=== PATIENT | female | born 1995 | race Caucasian/White ===

== ENCOUNTER → 2019-08-20 14:01 | Outpatient (BNVA) | payer OTHER, SELFPAY | PROVIDERS: Family Provider Family Medicine; PCP Family Medicine; Visit Provider Obstetrics & Gynecology | DX: Z01.89 Encounter for other specified special examinations (principal) | CPT/HCPCS: 84315 ==

== ENCOUNTER → 2019-09-12 10:06 | Outpatient (BNVA) | payer OTHER, SELFPAY | PROVIDERS: Family Provider Family Medicine; PCP Family Medicine; Visit Provider Obstetrics & Gynecology | DX: Z01.89 Encounter for other specified special examinations (principal) | CPT/HCPCS: 84315 ==

== ENCOUNTER → 2019-09-16 15:30 | Outpatient (BNVA) | payer OTHER, SELFPAY | PROVIDERS: Family Provider Family Medicine; PCP Family Medicine; Visit Provider Obstetrics & Gynecology | DX: Z01.89 Encounter for other specified special examinations (principal) | CPT/HCPCS: 84315 ==

== ENCOUNTER → 2019-09-23 16:08 | Outpatient (BNVA) | payer OTHER, SELFPAY | PROVIDERS: Family Provider Family Medicine; PCP Family Medicine; Visit Provider Obstetrics & Gynecology Female Pelvic Medicine and Reconstructive Surgery | DX: Z01.89 Encounter for other specified special examinations (principal) | CPT/HCPCS: 84315 ==

== ENCOUNTER 2019-09-24 00:41 | Outpatient (CLI) | payer OTHER, SELFPAY ==
[2019-09-24 00:41] VITALS: BMI 33.1
[2019-09-24 00:49] VITALS: BP 144/83; PULSE 76; RESP 16; TEMP 37.2
== END 2019-09-24 01:45 | disposition home or self-care (01) ==
LOC: OPOB 00:45 → OBGYN 01:27 → OPOB 14:35
PROVIDERS: Family Provider Family Medicine; PCP Family Medicine; Visit Provider Obstetrics & Gynecology Female Pelvic Medicine and Reconstructive Surgery
DX: O26.899 Other specified pregnancy related conditions, unspecified trimester (principal); Z3A.00 Weeks of gestation of pregnancy not specified; R10.9 Unspecified abdominal pain
CPT/HCPCS: 59025; 99211; J2795

== ENCOUNTER 2019-09-24 05:30 | Inpatient (IN) | payer OTHER, SELFPAY ==
[2019-09-24] VITALS (80 sets, daily range): BP systolic 0–145; BP diastolic 0–89; PULSE 52–122; RESP 16–25; TEMP 36.4–37.4; O2SAT 90–100; BMI 33.1
[2019-09-24] MEDS: lactated ringers 1,000 ML 999 ML IV ×2 (06:15→07:21)
[2019-09-24] MEDS: fentaNYL 50 mcg/mL INJ 2mL IV (06:28)
[2019-09-24 06:35] LABS: Basophils % 0.2 %; Eosinophils % 0.1 %; Hematocrit 37.2 % (37.0-47.0); Hemoglobin 12.3 g/dL (11.5-15.3); Mean Corpuscular HGB Conc 33.1 g/dL (30.0-36.0); Mean Corpuscular Hemoglobin 31.9 pg (28.0-34.0); Mean Corpuscular Volume 96.6 fL (81-99); Mean Platelet Volume 9.5 fL (7.4-10.4); Monocytes # 0.6 10^3/uL (0.2-0.9); Monocytes % 4.5 %; Neutrophils # 11.9 10^3/uL (1.8-7.7); Neutrophils % 87.5 %; Nucleated Red Blood Cells % 0 %; Platelet Count 219 10^3/cmm (130-400); Red Blood Count 3.85 10^6/uL (4.1-5.3); Red Cell Distribution Width 13.4 % (12.1-15.1); White Blood Count 13.6 10^3/uL (4.0-10.0)
--- NOTE | 2019-09-24 07:49 | PM.OBGYHP ---
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 Presents to labor and delivery with regular uterine contractions onset last p.m. While under observation in labor and delivery patient had spontaneous rupture of membranes at that time fluid is clear her cervix was 4 cm her contractions were quite uncomfortable she was therefore admitted to labor and delivery. Uterine contractions approximately every 4 minutes described as quite strong by the patient. Reassuring category 1 tracing This has been uncomplicated. Present Details : 1 Para: 0 Date of Last Menstrual Period: 12/24/18 Calculated Date of Delivery: 09/30/19 Gestational Age Based on Last Menstrual Period: 39 Dating criteria OB: LMP confirmed by 1st trimester US care: good care Ultrasounds: normal 1st trimester US and normal mid trimester US Obstetrical complications: none Medical complications OB: none Review of Systems Const: Denies: fever, chills or body aches Eyes: Denies: change in vision ENMT: Denies: painful swallowing Card: Denies: chest pain, palpitations, irregular heart rhythm or edema Resp: Denies: shortness of breath, productive cough or non-productive cough GI: Reports: abdominal pain (Regular uterine contractions); Denies: nausea or vomiting : Denies: flank pain, difficulty urinating or vaginal discharge Musc: Denies: back pain, extremity pain or joint pain Skin/Breast: Denies: rash Neuro: Denies: headache or numbness in extremities Psych: Denies: anxiety or depression Endo: Denies: cold intolerance, excessive sweating, hot flashes or heat intolerance Agustin/Lymph: Denies: easy bruising or easy bleeding All/Imm: Denies: hives Medications/Allergies Allergies Allergy/AdvReac Type Severity Reaction Status Date / Time No Known Allergies Allergy Verified 09/11/19 12:48 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 History History 1 Term 0 Miscarriages/Ectopic 0 0 Living Children 0 Care 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 Calculator Estimated Delivery Date Method Current WG Current Estimate 09/30/19 LMP (Certain) 39w 1d Expected Delivery Route/Plan Anticipate vaginal delivery Specific Issues/Plans Patient desires labor epidural OB Visit Log Initial Weight: Not Recorded Date <del>?</del> EGA Weight BP Albumin <del>?</del> Glucose Nitrate <del>?</del> Blood Fundal Ht PRES HR Movement Edema Dilation Effacement Station 09/24/19 <del>?</del> 39w 1d 90.265 kg 199 g 139/72 124/74 124/89 131/69 114/75 111/60 117/58 141/74 145/71 124/58 143/72 134/75 141/82 137/77 144/72 <del>?</del> <del>?</del> Vertex -2 Vitals/I&O/Wt Last Vital Signs Temp 98.5 F 09/24/19 03:02 Pulse 97 09/24/19 07:45 Resp 25 H 09/24/19 06:28 BP 145/71 09/24/19 07:45 Pulse Ox 99 09/24/19 07:47 09/23/19 09/24/19 09/24/19 22:59 06:59 14:59 Intake Total 1000 / 1000 Balance 1000 / 1000 Weight last 48 hrs Weight 199 g Weight 90.265 kg Physical Exam Narrative: EXAM NARRATIVE: Alert and oriented no acute distress pleasant white female intermittent uterine contractions. Skin no rashes HEENT grossly normal Neck supple nontender no nodes no masses Lungs clear to auscultation Heart regular sinus rhythm Abdomen gravid soft nontender palpable uterine contractions baby is vertex by Teodoro estimated weight 7 pounds 12 ounces Pelvic examination: Per nursing service cervix 80% effaced/4 cm dilated/vertex SROM clear By my office exam pelvis is adequate Extremities grossly intact no edema Neurologic exam patella DTR 2/4 no clonus Data : 09/24/19 05:45 A&P Assessment and plan (1) Term : Status: Acute Code(s): Z34.90 - Encounter for supervision of normal , unspecified, unspecified trimester (2) Uterine contractions: Status: Acute (3) Spontaneous rupture of membranes: Status: Acute Attestations Medical Necessity Statement*: labor Time Spent in Patient Care: 16 - 35 minutes 30 Coding Level of Care Code Acute Real Estate Closer for Chg Fwd History Expanded Problem Focused Exam Expanded Problem Focused Medical Decision Making Moderate Complexity Diagnoses Term Z34.90 Uterine contractions Spontaneous rupture of membranes Time Spent (min) 30
--- NOTE | 2019-09-24 10:49 | PM.DELIVERY ---
 Delivery Note: Date of delivery: September 24, 2019 Pre-Delivery Course: unremarkable Delivery: Patient presented to labor and delivery early this a.m. with uterine contractions and underwent spontaneous rupture of membranes while ambulating at about 4 cm. Progress nicely to the first stage of labor with reassuring category 1 tracing underwent epidural anesthesia. She was allowed to progress to complete complete and started pushing with excellent maternal effort and reassuring tracing in second stage had spontaneous vaginal delivery occiput anterior viable female infant Apgars 8 and 9. Infant was laid on mom's abdomen delayed cord clamping was performed. Mother did did receive IV Pitocin with delivery of the anterior shoulder with excellent uterine contractility. Upon delivery of the placenta there was some reluctance of the placenta to to separate from uterine wall and manual extraction was performed without difficulty. Placenta appeared to be whole. Bilateral labial lacerations repaired with running 3-0 Vicryl without difficulty. Baby remained in room with parents for boarding. There were no complications. Post-Delivery Status: doing well to floor discharge in AM A&P Assessment and plan (1) Term : Status: Acute Code(s): Z34.90 - Encounter for supervision of normal , unspecified, unspecified trimester (2) Uterine contractions: Status: Acute (3) Spontaneous rupture of membranes: Status: Acute Coding Level of Care Code Acute Investigator Internal Affairs for Chg Fwd History Expanded Problem Focused Exam Expanded Problem Focused Medical Decision Making Moderate Complexity Diagnoses Term Z34.90 Uterine contractions Spontaneous rupture of membranes Time Spent (min) 35
[2019-09-24] MEDS: lanolin oint 7 gm 1 APPLIC TOPICAL (12:22)
[2019-09-24] MEDS: benzocaine-menthol 78 gm Canister 1 SPRAY TOPICAL (12:22)
[2019-09-24] MEDS: lidocaine 2% INJ 20 mL INJECTION (12:23)
--- NOTE | 2019-09-24 12:49 | PC.NURSE ---
transported via walking to pushing crib with baby inside. pt tolerated well
[2019-09-24] MEDS: acetaminophen 325 mg Tablet 650 MG PO (13:23)
[2019-09-24 22:41] LABS: Hematocrit 32.7 % (37.0-47.0); Hemoglobin 10.8 g/dL (11.5-15.3); Mean Corpuscular Hemoglobin 32.4 pg (28.0-34.0); Mean Corpuscular Volume 98.2 fL (81-99); Mean Platelet Volume 9.2 fL (7.4-10.4); Platelet Count 153 10^3/cmm (130-400); Red Blood Count 3.33 10^6/uL (4.1-5.3); Red Cell Distribution Width 13.5 % (12.1-15.1); White Blood Count 11.5 10^3/uL (4.0-10.0)
[2019-09-25 06:13] VITALS: BP 124/72; PULSE 70; RESP 16; TEMP 36.7
[2019-09-25 08:22] VITALS: BP 97/58; PULSE 78; RESP 16
[2019-09-25] MEDS: prenatal vitamin Capsule 1 CAP PO (08:34)
[2019-09-25] MEDS: docusate sodium 100 mg Capsule PO (08:34)
[2019-09-25] MEDS: ferrous sulfate EC 325 mg Tablet PO (08:34)
--- NOTE | 2019-09-25 09:09 | PM.OBGYPN ---
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 Subjective: Interval history: Part-time day 1 Patient doing well baby doing well ready to discharge home Labor: Station: +2 Amniotic Membrane Status: Leaking Monitor Mode: External Contraction Pattern: Regular Status: Category l Post /CS: Patient comments OB post-: pain well controlled baby status: doing well feeding status: exclusively breast feeding Vitals/I&O/Wt Last Vital Signs Temp 98.0 F 09/25/19 06:13 Pulse 70 09/25/19 06:13 Resp 16 09/25/19 06:13 BP 124/72 09/25/19 06:13 Pulse Ox 97 09/24/19 16:38 09/24/19 09/25/19 09/25/19 22:59 06:59 14:59 Intake Total 1200 / 3200 Balance 1200 / 2200 Weight last 48 hrs Weight 90.265 kg Weight 199 g Weight 90.265 kg Physical Exam Narrative: EXAM NARRATIVE: Alert and oriented no acute distress Abdomen soft nontender U- 2 firm Perineum not examined by me Extremities no significant edema no calf tenderness Data : 09/24/19 22:33 A&P Assessment and plan (1) Vaginal delivery: Status: Acute Code(s): O80 - Encounter for full-term uncomplicated delivery (2) Term : Status: Acute Code(s): Z34.90 - Encounter for supervision of normal , unspecified, unspecified trimester (3) Spontaneous rupture of membranes: Status: Acute (4) Uterine contractions: Status: Acute Attestations Medical Necessity Statement*: Coding Level of Care Code Acute Field Health Officer for Chg Fwd Diagnoses Vaginal delivery O80 Term Z34.90 Spontaneous rupture of membranes Uterine contractions
--- NOTE | 2019-09-25 09:11 | PM.OBGYPN ---
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 Labor: Station: +2 Amniotic Membrane Status: Leaking Monitor Mode: External Contraction Pattern: Regular Status: Category l Vitals/I&O/Wt Last Vital Signs Temp 98.0 F 09/25/19 06:13 Pulse 70 09/25/19 06:13 Resp 16 09/25/19 06:13 BP 124/72 09/25/19 06:13 Pulse Ox 97 09/24/19 16:38 09/24/19 09/25/19 09/25/19 22:59 06:59 14:59 Intake Total 1200 / 3200 Balance 1200 / 2200 Weight last 48 hrs Weight 90.265 kg Weight 199 g Weight 90.265 kg Data : 09/24/19 22:33 Attestations Medical Necessity Statement*: 24 h status post delivery Time Spent in Patient Care: 16 - 35 minutes Patient education time of discharge Coding Level of Care Code Acute [employer] Worker for Dheerajg Fwd History Expanded Problem Focused Exam Expanded Problem Focused Medical Decision Making Low Complexity Time Spent (min) 30
--- NOTE | 2019-09-25 09:13 | PM.OBGYDC ---
Discharge Providers DRUM MAKER Date of Admission: 09/24/19 05:30 Date of Discharge: 09/25/19 Attending Provider at Admission: Rai Ivey DO Attending Provider at Discharge: Rai Ivey DO Primary Care Provider: Harshil Knox MD Diagnoses at Discharge Discharge Diagnosis (1) Vaginal delivery: Status: Acute Problem details: Vaginal delivery uncomplicated (2) Term : Status: Acute (3) Spontaneous rupture of membranes: Status: Acute Problem details: Patient did undergo spontaneous rupture of membranes while in observation. This has been low risk he will be admitted for labor anticipate vaginal delivery. 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 Had category 1 tracing spontaneous uterine contractions excellent progression through labor. Spontaneous vaginal delivery viable female infant, uncomplicated. No perineal laceration bilateral labial lacerations repaired. patient did well she and baby bonded nicely patient was nursing discharged home 24 hours after delivery. Information Peripartum Data: Infant Delivery Method: Vaginal Physical Exam Narrative: EXAM NARRATIVE: Alert and oriented no acute distress Abdomen soft nontender U- 2 firm nontender Extremities no calf tenderness no swelling Discharge Data Data Completed and Pending: Labs from last 24 hours 09/24/19 09/24/19 22:33 05:45 WBC 11.5 H RBC 3.33 L Hgb 10.8 L Hct 32.7 L MCV 98.2 MCH 32.4 MCHC 33.0 RDW 13.5 Plt Count 153 MPV 9.2 Antibody Screen Negative Vitals: Last Vital Signs Temp 98.0 F 09/25/19 06:13 Pulse 70 09/25/19 06:13 Resp 16 09/25/19 06:13 BP 124/72 09/25/19 06:13 Pulse Ox 97 09/24/19 16:38 Discharge Plan Discharge Patient Disposition: Home, Self-Care Condition: Stable Prescriptions: Continued ferrous sulfate [iron] 325 mg (65 mg iron) tablet 325 mg PO DAILY RF: 0 M-Jessica Plus 27 mg iron- 1 mg tablet 1 tab PO DAILY RF: 0 Discharge Orders: Discharge Order (Routine); Ordered 09/25/19 Ordered By: Rai Ivey Referrals: Rai Ivey DO [Physician] - 2 weeks Discharge Diet: Advance as tolerated Discharge Activity: Increase activity as tolerated Discharge Attestations DRUM MAKER Time Spent in Discharge Care*: less than 30 min Coding Level of Care Code Acute Bench Molder for Chg Fwd Diagnoses Vaginal delivery O80 Term Z34.90 Spontaneous rupture of membranes Uterine contractions
[2019-09-25 09:26] VITALS: BP 97/58; PULSE 78; RESP 16
== END 2019-09-25 11:50 | disposition home or self-care (01) | DRG 807 ==
LOC: OPOB 16:30 → OBGYN 16:30
PROVIDERS: Admitting Provider Obstetrics & Gynecology Female Pelvic Medicine and Reconstructive Surgery; Family Provider Family Medicine; PCP Family Medicine; Visit Provider Obstetrics & Gynecology Female Pelvic Medicine and Reconstructive Surgery
DX: O62.3 Precipitate labor (principal); Z37.0 Single live birth; Z3A.39 39 weeks gestation of pregnancy
CPT/HCPCS: 12345; 36415; 51701; 59409; 83986; 85025; 85027; 86850; 98960; 99211; J2001; J2795; J3010

== ENCOUNTER 2019-12-07 08:36 | Outpatient (CLI) | payer OTHER, SELFPAY ==
--- NOTE | 2019-12-07 | USR_ITS ---
PROCEDURE INFORMATION: Exam: US Abdomen Limited, Right Upper Quadrant Exam date and time: 12/07/2019 9:32 AM Age: 24 years old Clinical indication: Abdominal pain; Patient HX: (delivered baby in sep 2019); Additional info: Ruq tenderness TECHNIQUE: Imaging protocol: Real-time ultrasound of the abdomen with image documentation. Examination was focused on the right upper quadrant. COMPARISON: No relevant prior studies available. FINDINGS: Liver: No focal hepatic mass. Gallbladder: No cholelithiasis, gallbladder wall edema, or pericholecystic fluid. Technologist reported negative sonographic Fernandez sign. Common bile duct: Normal caliber of the visualized common bile duct measuring 2 mm in diameter. Pancreas: No acute sonographic abnormality in the visualized pancreas. Right kidney: Normal right renal morphology. No hydronephrosis. Aorta: Normal caliber of the visualized abdominal aorta. Inferior vena cava: Unremarkable IVC. US/US gall bladder [id number] IMPRESSION: No acute sonographic abnormality in the visualized right upper quadrant.
== END 2019-12-07 08:37 | disposition home or self-care (01) ==
PROVIDERS: Family Provider Family Medicine; PCP Family Medicine; Visit Provider Obstetrics & Gynecology Female Pelvic Medicine and Reconstructive Surgery
DX: R10.11 Right upper quadrant pain (principal)
CPT/HCPCS: 76705

== ENCOUNTER 2020-04-09 13:53 | Outpatient (CLI) | payer OTHER, SELFPAY ==
--- NOTE | 2020-04-09 14:15 | XR_ITS ---
WS: [id number] RIGHT ANKLE: 3 VIEW(S) TECHNIQUE: AP, oblique(s) and lateral. HISTORY: ANKLE PAIN, RIGHT COMPARISON: None available. Normal anatomic alignment with no fracture or dislocation. No joint effusion or widening of the ankle mortise. No significant degenerative changes at the joint spaces. No soft tissue abnormality. XR/XR ankle RT min 3V* [id number] IMPRESSION: Normal RIGHT ankle.
== END 2020-04-09 13:54 | disposition home or self-care (01) ==
LOC: RADWPI 13:57
PROVIDERS: Family Provider Family Medicine; PCP Family Medicine; Visit Provider Family Medicine
DX: M25.571 Pain in right ankle and joints of right foot (principal)
CPT/HCPCS: 73610